=== PATIENT | female | born 1995 | race Caucasian/White ===

== ENCOUNTER 2024-08-10 12:00 | Inpatient (IN) ==
[2024-08-13] MEDS: PEPCID 20 MG VIAL ONE (06:38)
[2024-08-13] MEDS: ZOFRAN INJ 4 MG VIAL ONE (06:38)
[2024-08-13] MEDS: REGLAN INJ 10 MG VIAL ONE (06:38)
[2024-08-13] MEDS ORDERED: D5 1/2 NS 1,000 ML 1,000 ML IV SCH (06:40)
[2024-08-13] MEDS: LR 1,000 ML IV 1,000 ML IV ONE ×2 (06:42→07:24)
[2024-08-13] MEDS: XYLOCAINE 1 % (PLAIN) ONE (06:50)
[2024-08-13] MEDS: LR 1,000 ML IV 2,000 ML IV PRN (06:50)
[2024-08-13] MEDS: PRECEDEX INJ VIAL ONE (06:51)
[2024-08-13] MEDS: MARCAINE SPINAL ONE (06:51)
[2024-08-13] MEDS: PEPCID 20 MG VIAL IVP PRN (07:00)
[2024-08-13] MEDS: ZOFRAN INJ 4 MG VIAL IVP PRN (07:00)
[2024-08-13] MEDS: REGLAN INJ 10 MG VIAL IVP PRN (07:00)
[2024-08-13] MEDS: TORADOL 30 MG VIAL ONE (07:06)
[2024-08-13] MEDS: OFIRMEV IV 1000 MG VIAL 1,000 MG/100 ML VIAL IV ONE (07:06)
[2024-08-13] MEDS: ANCEF VIAL 1 GRAM IV PRN (07:15)
[2024-08-13] MEDS: NS 100 ML IV 100 ML ONE (07:24)
[2024-08-13] MEDS: ANCEF VIAL 1 GRAM IVP ONE (07:24)
[2024-08-13] MEDS: NS 1,000 ML IV 1,000 ML ONE (07:24)
[2024-08-13] MEDS: PITOCIN ONE (07:57)
[2024-08-13] MEDS: TORADOL 30 MG VIAL IVP PRN ×2 (08:06→13:10)
[2024-08-13] MEDS: DIPRIVAN VIAL 200 ML IVP PRN (08:11)
[2024-08-13] MEDS: NS 1,000 ML IV 400 ML IV PRN (08:16)
[2024-08-13] MEDS ORDERED: PITOCIN IVP PRN (08:16)
[2024-08-13] MEDS ORDERED: ZOFRAN INJ 4 MG VIAL IVP PRN (08:28)
[2024-08-13] MEDS ORDERED: BENADRYL INJ 50 MG VIAL IVP PRN ×2 (08:28→09:39)
[2024-08-13] MEDS ORDERED: BARHEMSYS INJ IVP PRN (08:28)
[2024-08-13] MEDS ORDERED: DILAUDID INJ IVP PRN (08:28)
[2024-08-13] MEDS ORDERED: REGLAN INJ 10 MG VIAL IVP PRN ×2 (08:28→09:39)
[2024-08-13] MEDS: OFIRMEV IV 1000 MG VIAL 1,000 MG/100 ML VIAL IV PRN (08:45)
[2024-08-13] MEDS ORDERED: NARCAN INJ IVP PRN (09:39)
[2024-08-13] MEDS: PERCOCET TAB 5/325 MG PO PRN (15:37)
[2024-08-13] MEDS ORDERED: ADACEL or BOOSTRIX TDaP VACCINE IM ONE (15:38)
[2024-08-13] MEDS: ADACEL or BOOSTRIX TDaP VACCINE IM ONE (15:48)
[2024-08-13] MEDS: OXYTOCIN 20 UNIT/1,000 ML-NS 20 UNIT/1,000 ML PLAST..BAG IV SCH (15:52)
[2024-08-13] MEDS: MYLICON TAB 80 MG CHEW PO PRN (19:38)
[2024-08-14] MEDS: ZOFRAN INJ 4 MG VIAL IVP PRN (00:13)
[2024-08-14 05:08] LABS: HEMATOCRIT 33.5 % (36.0-47.0); HEMOGLOBIN 11.3 g/dL (12.0-16.0)
[2024-08-14] MEDS: PROTONIX TAB 40 MG PO SCH (08:19)
[2024-08-14] MEDS: PRENATAL PLUS PO SCH (08:19)
[2024-08-14] MEDS: MOTRIN TAB 800 MG PO PRN (08:20)
[2024-08-14] MEDS ORDERED: PRENATAL PLUS PO SCH (09:00)
[2024-08-14] MEDS: COLACE CAP 100 MG PO SCH (09:57)
[2024-08-14] MEDS: PERCOCET TAB 5/325 MG PO PRN (09:58)
[2024-08-14] MEDS: BACTROBAN TOPICAL OINT TOP SCH (14:36)
[2024-08-15 00:17] VITALS: TEMP 98
[2024-08-15 06:09] VITALS: O2SAT 97
[2024-08-15 08:15] VITALS: BP 133/75; PULSE 86; RESP 17
== END 2024-08-15 10:00 | disposition home or self-care (01) | DRG 788 ==
LOC: LD 08-13 06:26 → MED/SURG 08-13 09:38
PROVIDERS: ADMIT Specialist; ATTEND Specialist
DX: Z37.0 Single live birth; O41.03X0 Oligohydramnios, third trimester, not applicable or unspecified; O99.613 Diseases of the digestive system complicating pregnancy, third trimester; Z3A.38 38 weeks gestation of pregnancy; K21.9 Gastro-esophageal reflux disease without esophagitis; O34.211 Maternal care for low transverse scar from previous cesarean delivery; N85.8 Other specified noninflammatory disorders of uterus

== ENCOUNTER 2025-05-15 16:25 | Inpatient (IN) ==
--- NOTE | 2025-05-15 17:09 | ED.ABDFE ---
HPI Time Seen Time Seen by Provider: 05/15/25 16:37 PCP Primary Care Physician: nfd Complaint Doctors Chief Complaint Comments: 29 yo F, hx ovarian cysts, abd surg hx of c/s x 3, no other med or surg hx, c/o bilat lower abd pain for past 12. States pain has become increasingly worse throughout the day. Denies urinary symptoms. Chief Complaint:: Pt states she had sudden onset of abdominal pain and vomiting x2 hours ago. She states she has thrown up about 10x since these sx started. She indicates pain is at lower abdomen, rates 10/10; denies urinary complaints. She denies GI hx; denies diarrhea. States she felt lightheaded and was "seeing black spots" when she stood from sitting position. Self Treatment fo Chief Complaint: zofran at approx 11am COVID-19 Coronavirus risk:travel/contact w/high risk person: No Has patient experienced Coronavirus symptoms: No Source History Provided: Patient Mode of arrival Mode of Arrival: Ambulatory Timing Onset of Chief Complaint: 05/15/25 PMH PMH Past Medical History: No Past Surgical History: Yes Surgical History: Family History History of Family Medical Conditions: Yes Family Medical History: Diabetes Mellitus, Cancer and Hypertension Social History Does any household member use tobacco: No Alcohol Use: None Do you use any recreational Drugs:: No Lives With: Spouse and Family Lives Where: Home Travel Risk Coronavirus risk:travel/contact w/high risk person: No Has patient experienced Coronavirus symptoms: No Infectious screening In the last 2 months have you had wt loss of >10#?: NO Have you had fever, night sweats or hemotysis?: No Have you traveled outside the country in the last 6 months?: No Isolation: Contact ROS Review of Systems Gastrointestinal/Abdominal: Abdominal Pain, Nausea and Vomiting; negative Diarrhea All Other Systems: Reviewed and Negative PE Vital Signs Vitals: Vital Signs Temperature 97.5 F Pulse Rate [Left] 75 Pulse Rate 87 Respiratory Rate 20 Respiratory Rate 20 Respiratory Rate 20 Blood Pressure [Left Arm] 144/78 Blood Pressure 137/100 O2 Sat by Pulse Oximetry 100 O2 Sat by Pulse Oximetry 100 General Limitations: No Limitations and Language Barrier General Appearance: Alert and In No Apparent Distress Head Head Exam: Normal Inspection Eyes Eye exam: Normal Appearance ENT ENT Exam: Normal Exam Neck Neck Exam: Normal Inspection Chest Chest Inspection: Normal Inspection Respiratory Respiratory Exam: Normal Lung Sounds Bilat Cardiovascular Cardiovascular Exam: Regular Rate and Normal Rhythm Abdominal Exam Abdominal Exam: Soft, Tenderness and Guarding; negative Normal Bowel Sounds Rectal Rectal Exam: Deferred Back Back Exam: Normal Inspection Extremeties Extremities Exam: Normal Inspection Neurologic Neurological Exam: Alert and Oriented X3 Psychiatric Psychiatric Exam: Normal Affect and Normal Mood Skin Skin Exam: Warm, Dry and Intact ROR Labs Reviewed Laboratory Results Reviewed?: Yes 05/15/25 17:15 05/15/25 17:15 Laboratory: WBC 18.3 X10^3/uL (3.6-10.0) H 05/15/25 17:15 RBC 5.44 X10^6/uL (3.5-5.4) H 05/15/25 17:15 Hgb 13.4 g/dL (12.0-16.0) 05/15/25 17:15 Hct 41.8 % (36.0-47.0) 05/15/25 17:15 MCV 76.9 fL (80.0-100.0) L 05/15/25 17:15 MCH 24.6 pg (27.0-34.0) L 05/15/25 17:15 MCHC 32.0 g/dL (33.0-35.0) L 05/15/25 17:15 RDW 15.6 % (11.6-16.5) 05/15/25 17:15 Plt Count 319 X10^3/uL (150.0-450.0) 05/15/25 17:15 MPV 9.3 fL (7.4-11.0) 05/15/25 17:15 Neut % (Auto) 80.8 % (42.0-75.0) H 05/15/25 17:15 Lymph % (Auto) 14.4 % (21.0-51.0) L 05/15/25 17:15 [place] % (Auto) 3.6 % (0.0-13.0) 05/15/25 17:15 Eos % (Auto) 0.4 % (0.9-2.9) L 05/15/25 17:15 Baso % (Auto) 0.8 % (0.2-1.0) 05/15/25 17:15 Neut # (Auto) 14.8 x10^3/uL (2.2-4.8) H 05/15/25 17:15 Lymph # (Auto) 2.6 X10^3/uL (1.3-2.9) 05/15/25 17:15 [place] # (Auto) 0.7 x10^3/uL (0.3-0.8) 05/15/25 17:15 Eos # (Auto) 0.1 x10^3/uL (0.0-0.2) 05/15/25 17:15 Baso # (Auto) 0.1 X10^3/uL (0.0-0.1) 05/15/25 17:15 Absolute Nucleated RBC 0.1 /100WBC 05/15/25 17:15 Sodium 139 mmol/L (136-145) 05/15/25 17:15 Corrected Sodium 140 mmol/L (136-145) 05/15/25 17:15 Potassium 4.0 mmol/L (3.5-5.1) 05/15/25 17:15 Chloride 103 mmol/L (98-107) 05/15/25 17:15 Carbon Dioxide 26.4 mmol/L (21-32) 05/15/25 17:15 BUN 10 mg/dL (7-18) 05/15/25 17:15 Creatinine 0.99 mg/dL (0.55-1.02) 05/15/25 17:15 Est GFR (MDRD) Af Amer > 60 (>60) 05/15/25 17:15 Est GFR (MDRD) Non-Af > 60 (>60) 05/15/25 17:15 Glucose 140 mg/dL (65-99) H 05/15/25 17:15 Calcium 9.1 mg/dL (8.5-10.1) 05/15/25 17:15 Corrected Calcium TNP 05/15/25 17:15 Total Bilirubin 0.30 mg/dL (0.2-1.0) 05/15/25 17:15 AST 44 Units/L (15-37) H 05/15/25 17:15 ALT 70 Units/L (12-78) 05/15/25 17:15 Alkaline Phosphatase 107 Units/L (46-116) 05/15/25 17:15 Total Protein 8.0 g/dL (6.4-8.2) 05/15/25 17:15 Albumin 4.1 g/dL (3.4-5.0) 05/15/25 17:15 Globulin 3.9 g/dL (2.5-4.5) 05/15/25 17:15 Albumin/Globulin Ratio 1.1 Ratio (1.1-2.1) 05/15/25 17:15 Lipase 27 Units/L (16-77) 05/15/25 17:15 HCG, Qual Negative <10 mIU/mL 05/15/25 17:15 Specimen Type Clean catch urine 05/15/25 18:00 Urine Color Yellow (YELLOW) 05/15/25 18:00 Urine Appearance Clear (CLEAR) 05/15/25 18:00 Urine pH 6.0 (5.0 - 8.0) 05/15/25 18:00 Ur Specific [place] 1.030 (1.000-1.030) 05/15/25 18:00 Urine Protein 2+ (NEGATIVE) 05/15/25 18:00 Urine Glucose (UA) Negative (NEGATIVE) 05/15/25 18:00 Urine Ketones 1+ (NEGATIVE) 05/15/25 18:00 Urine Blood Negative (NEGATIVE) 05/15/25 18:00 Urine Nitrite Negative (NEGATIVE) 05/15/25 18:00 Urine Bilirubin Negative (NEGATIVE) 05/15/25 18:00 Urine Urobilinogen Normal (NORMAL) 05/15/25 18:00 Ur Leukocyte Esterase Negative (NEGATIVE) 05/15/25 18:00 Urine RBC None seen /HPF (0-3) 05/15/25 18:00 Urine WBC 0-2 /HPF (0-5) 05/15/25 18:00 Ur Squamous Epith Cells Rare /HPF (NEGATIVE) 05/15/25 18:00 Calcium Oxalate Crystal Rare /HPF (NEGATIVE) 05/15/25 18:00 Amorphous Sediment Trace /HPF (NEGATIVE) 05/15/25 18:00 Urine Bacteria Negative /HPF (NEGATIVE) 05/15/25 18:00 Urine Mucus Few /HPF (NEGATIVE) 05/15/25 18:00 Ur Culture Indicated? No/not indicated 05/15/25 18:00 Opioid Opioid Risk Tool Age (Al box if 16-45): Yes History of Preadolescent Sexual Abuse: No Total: 1 Total Score Risk Category: Low Risk Copyright: Adiel PAGAN predicting aberrant behaviors Discharge Plan Diagnosis Discharge Problem: Acute appendicitis, Ovarian cyst Discharge Plan Patient Disposition: 09 ADMITTED INPATIENT Condition: Stable Prescriptions: No Action ondansetron HCl 4 mg tablet 4 mg PO Q4H PRN Health Concerns: Post Hospitalization: new medications and changes needed to prevent readmission or further decline. Pt educated and given instructions on all concerns. Plan of Treatment: Continue with present treatment and follow up plan. Pt is to keep follow up appointment as instructed and take medications as ordered. Orders to Discharge Patient Discharge Orders: Transfer (Routine); Ordered 05/15/25 Ordered By: Froilan Domingo Follow ups/Referrals Follow ups/Referrals: [facility],None [Primary Care Provider] - 3 days Instructions Stand Alone Forms: Find Help Web Site, Post Hospital Follow Up Care Print Language: SWEDISH Provider Note Additional Notes Spoke with Dr Junior, who accepts pt for admission at this time, planning for surgery tomorrow morning. Pt given zosyn and made NPO.
[2025-05-15] MEDS: NS 1,000 ML IV 1,000 ML IV ONE (17:19)
[2025-05-15] MEDS: ZOFRAN INJ 4 MG VIAL IVP ONE (17:19)
[2025-05-15] MEDS: MORPHINE SULFATE INJ 4 MG IVP ONE (17:19)
[2025-05-15 17:24] LABS: MEAN PLATELET VOLUME 9.3 fL (7.4-11.0); RED CELL DISTRIBUTION WIDTH 15.6 % (11.6-16.5)
[2025-05-15 17:35] LABS: SERUM PREGNANCY TEST, QUAL NEGATIVE <10 mIU/mL
[2025-05-15 17:36] LABS: COR NA(FOR HYPERGLY) 140 mmol/L (136-145); CREATININE 0.99 mg/dL (0.55-1.02); eGFR NON BLACK RACES > 60 (>60)
[2025-05-15] MEDS: OMNIPAQUE 350 mg/mL 100 mL BTL IVP NR (17:45)
[2025-05-15 18:17] LABS: BLOOD/HEMOGLOBIN,URINE NEGATIVE (NEGATIVE); LEUKOCYTE ESTERASE ,URINE NEGATIVE (NEGATIVE); NITRITES,URINE NEGATIVE (NEGATIVE)
[2025-05-15 18:21] LABS: APPEARANCE,URINE CLEAR (CLEAR)
[2025-05-15 18:33] LABS: CALCIUM OXALATE CRYSTALS,UR RARE /HPF (NEGATIVE); SQUAMOUS EPITHELIAL CELL,UR RARE /HPF (NEGATIVE)
[2025-05-15] MEDS ORDERED: NS 250 ML IV 25 ML IV PRN (18:48)
[2025-05-15] MEDS: ZOSYN VIAL 3.375 GRAMS 3.375 G in NS 100 ML IV 100 ML IV ONE (18:57)
--- NOTE | 2025-05-15 18:59 | CT ---
EXAM: CT ABDOMEN AND PELVIS WITH INTRAVENOUS CONTRAST HISTORY: Right lower quadrant abdominal pain. TECHNIQUE: Spiral axial CT images are obtained through the abdomen and pelvis without the administration of oral contrast and with the administration of intravenous contrast. Additional coronal and sagittal reformatted images are reconstructed. COMPARISON: None available. FINDINGS: GASTROINTESTINAL TRACT: There is evidence for early acute appendicitis in the appropriate clinical setting, marked by a dilated (1.2 cm diameter), thickwalled, fluid-filled appendix with minimal periappendiceal streaky inflammatory change. Axial image 69-85. Careful clinical correlation is advised. No drainable fluid collection, free air, or abscess formation seen. There is no evidence for bowel herniation, bowel obstruction, colitis or diverticulitis. GENITOURINARY SYSTEM: The kidneys are unremarkable. There is no ureteral calculus or stigmata of obstructive uropathy. The urinary bladder is grossly unremarkable for a non-dedicated exam. REPRODUCTIVE SYSTEM: There is an approximately 3.4 cm x 3.4 cm x 3.5 cm right ovarian cyst, presumed to represent a pathological cyst in this age category based on size criteria. Axial image 82; coronal image 38. Consider correlation with a followup ultrasound for further characterization as clinically warranted. The uterus and adnexa appear grossly unremarkable for a CT scan. Consider follow-up dedicated imaging as clinically warranted. LIVER: Diffuse hepatic steatosis with hepatomegaly (right lobe measures 26.1 cm CC); rule out nonalcoholic steatosis hepatitis; no focal hepatic mass seen. CT ABDOMEN: The spleen, pancreas, adrenal glands, gallbladder, aorta, and inferior vena cava are within normal limits for a CT scan. There is no intra-abdominal or retroperitoneal lymphadenopathy, free fluid, or free air seen. No abdominal herniation is noted. CT PELVIS: No pelvic sidewall or inguinal lymphadenopathy is seen. No inguinal herniation is noted. No free fluid or free air is seen. BONES AND JOINTS: The visualized bony structures are within normal limits. LUNG BASES: The lung bases are clear. IMPRESSION: 1. Evidence for early acute appendicitis in the appropriate clinical setting, marked by a dilated (1.2 cm diameter), thickwalled, fluid-filled appendix with minimal periappendiceal streaky inflammatory change. Axial image 69-85; coronal image 29-33. Careful clinical correlation is advised. 2. No drainable fluid collection, free air, or abscess formation seen. 3. No evidence for bowel herniation/obstruction, colitis or diverticulitis seen. 4. No evidence for pyelonephritis, renal stone disease or obstructive uropathy. 5. Approximately 3.4 cm x 3.4 cm x 3.5 cm right ovarian cyst, presumed to represent a pathological cyst in this age category based on size criteria. Axial image 82; coronal image 38. Consider correlation with a followup ultrasound for further characterization as clinically warranted. 6. Diffuse hepatic steatosis with hepatomegaly (right lobe measures 26.1 cm CC); rule out nonalcoholic steatosis hepatitis; no focal hepatic mass seen. 7. No free fluid, free air, mass lesions, or lymphadenopathy seen. THIS IS AN ELECTRONICALLY VERIFIED FINAL REPORT 05/15/2025 6:38 PM - Electronically signed by Neli Anne MD
[2025-05-15] MEDS ORDERED: PRECEDEX INJ VIAL ONE (19:33)
[2025-05-15] MEDS ORDERED: SUPRANE IN ONE (19:33)
[2025-05-15] MEDS ORDERED: XYLOCAINE 2 % (PLAIN) ONE (19:33)
[2025-05-15] MEDS ORDERED: KETAMINE HCL ONE (19:33)
--- NOTE | 2025-05-15 19:44 | EKG ---
Test Reason : pre-op Blood Pressure : */* mmHG Vent. Rate : 62 BPM Atrial Rate : 62 BPM P-R Int : 168 ms QRS Dur : 82 ms QT Int : 426 ms P-R-T Axes : 66 71 71 degrees QTc Int : 432 ms Normal sinus rhythm with sinus arrhythmia Normal ECG No previous ECGs available Confirmed by Ranjit Navas MD ([id number]) on 05/16/2025 5:37:09 AM Referred By: Confirmed By: Ranjit Navas MD
[2025-05-15] MEDS ORDERED: TYLENOL 325 MG TAB PO PRN (20:30)
[2025-05-15] MEDS ORDERED: ZOFRAN TAB 4 MG PO PRN (20:30)
[2025-05-15] MEDS ORDERED: NORCO 5/325 MG TAB PO PRN (20:30)
[2025-05-15] MEDS: NS 1,000 ML IV 1,000 ML IV SCH (20:51)
[2025-05-15] MEDS: ULTRAM PO PRN (21:20)
[2025-05-15] MEDS: OMNIPAQUE 350 mg/mL 100 mL BTL 100 ML ONE (21:58)
[2025-05-15 22:39] VITALS: BMI 44.1
[2025-05-16] MEDS: MORPHINE SULFATE INJ 2 MG INJ IVP PRN ×2 (00:51→12:57)
[2025-05-16] MEDS: CONSULT PHARMACY - POTASSIUM & MAGNESIUM XX SCH (02:08)
[2025-05-16 04:58] LABS: MEAN PLATELET VOLUME 9.4 fL (7.4-11.0); RED CELL DISTRIBUTION WIDTH 16.1 % (11.6-16.5)
[2025-05-16 05:10] LABS: COR CA(FOR HYPOALB) 8.9 mg/dL (8.5-10.1); CREATININE 0.83 mg/dL (0.55-1.02); eGFR NON BLACK RACES > 60 (>60)
[2025-05-16] MEDS: HIBICLENS WASH EXT ONE (06:05)
[2025-05-16] MEDS: ZOFRAN INJ 4 MG VIAL IVP PRN (06:54)
[2025-05-16] MEDS ORDERED: CONSULT PHARMACY - POTASSIUM & MAGNESIUM XX SCH (07:00)
[2025-05-16] MEDS: LR 1,000 ML IV 1,000 ML IV ONE ×2 (08:19→10:49)
[2025-05-16] MEDS: ANCEF VIAL 1 GRAM ONE (08:20)
[2025-05-16] MEDS: NS 100 ML IV 100 ML ONE (08:20)
[2025-05-16] MEDS: VERSED ONE (08:38)
[2025-05-16] MEDS: DIPRIVAN VIAL 20 ML ONE (08:39)
[2025-05-16] MEDS: FENTANYL VIAL INJ 100 mcg ONE (08:39)
[2025-05-16] MEDS: ZEMURON 100 MG VIAL ONE (08:39)
[2025-05-16] MEDS: BRIDION ONE (08:39)
[2025-05-16] MEDS: ZOFRAN INJ 4 MG VIAL ONE (08:39)
[2025-05-16] MEDS: ANCEF VIAL 1 GRAM IV PRN (08:40)
[2025-05-16] MEDS: LR 1,000 ML IV 0 ML IV PRN (08:40)
[2025-05-16] MEDS: VERSED IVP PRN (08:43)
[2025-05-16] MEDS: PEPCID 20 MG VIAL ONE (08:43)
[2025-05-16] MEDS: FENTANYL VIAL INJ 100 mcg IVP PRN ×2 (08:48→08:49)
[2025-05-16] MEDS: DIPRIVAN VIAL 150 ML IVP PRN (08:50)
[2025-05-16] MEDS: ZEMURON 100 MG VIAL IVP PRN ×2 (08:50→09:03)
[2025-05-16] MEDS: XYLOCAINE 2 % (PLAIN) IVP PRN (08:50)
[2025-05-16] MEDS: KETAMINE HCL IV PRN ×2 (08:54→09:13)
[2025-05-16] MEDS: OFIRMEV IV 1000 MG VIAL 1,000 MG/100 ML VIAL IV ONE (08:56)
[2025-05-16] MEDS: BACTROBAN TOPICAL OINT ONE (08:56)
[2025-05-16] MEDS: MARCAINE 0.5% ONE (08:56)
[2025-05-16] MEDS: PRECEDEX INJ VIAL IVP PRN ×2 (08:58→09:14)
[2025-05-16] MEDS: OFIRMEV IV 1000 MG VIAL 1,000 MG/100 ML VIAL IV PRN (09:00)
[2025-05-16] MEDS: TORADOL 30 MG VIAL ONE (09:11)
[2025-05-16] MEDS: TORADOL 30 MG VIAL IVP PRN (09:17)
[2025-05-16] MEDS ORDERED: BENADRYL INJ 50 MG VIAL IVP PRN (09:19)
[2025-05-16] MEDS ORDERED: ZOFRAN INJ 4 MG VIAL IVP PRN (09:19)
[2025-05-16] MEDS ORDERED: REGLAN INJ 10 MG VIAL IVP PRN (09:19)
[2025-05-16] MEDS ORDERED: BARHEMSYS INJ IVP PRN (09:19)
[2025-05-16] MEDS: BRIDION IVP PRN (09:22)
[2025-05-16] MEDS: DILAUDID INJ ONE (09:34)
[2025-05-16] MEDS: DILAUDID INJ IVP PRN (09:36)
[2025-05-16] MEDS ORDERED: NS 250 ML IV 25 ML IV PRN (09:40)
[2025-05-16] MEDS: D5 1/2 NS 1,000 ML 1,000 ML IV SCH (12:31)
[2025-05-16] MEDS: ZOSYN VIAL 3.375 GRAMS 3.375 G in NS 100 ML IV 100 ML IV SCH (12:32)
[2025-05-16] MEDS: K-DUR TAB 20 MEQ PO SCH (18:34)
[2025-05-17 05:03] LABS: MEAN PLATELET VOLUME 9.7 fL (7.4-11.0); RED CELL DISTRIBUTION WIDTH 15.6 % (11.6-16.5)
[2025-05-17 05:10] LABS: COR CA(FOR HYPOALB) 8.7 mg/dL (8.5-10.1); COR NA(FOR HYPERGLY) 141 mmol/L (136-145); CREATININE 0.84 mg/dL (0.55-1.02); eGFR NON BLACK RACES > 60 (>60)
[2025-05-17] MEDS: K-DUR TAB 20 MEQ PO SCH (05:55)
[2025-05-17] MEDS ORDERED: CONSULT PHARMACY - POTASSIUM & MAGNESIUM XX SCH ×2 (06:00→07:00)
[2025-05-17 07:49] VITALS: BP 127/80; PULSE 60; RESP 16; TEMP 97.7; O2SAT 98
== END 2025-05-17 08:45 | disposition home or self-care (01) | DRG 399 ==
LOC: ER 16:25 → MED/SURG 19:33
PROVIDERS: ADMIT Surgery; ATTEND Surgery
PROC: APPYLAP (ICD-10-PCS; 2025-05-16 08:15)
DX: R73.09 Other abnormal glucose; K35.890 Other acute appendicitis without perforation or gangrene; D72.828 Other elevated white blood cell count; Z01.810 Encounter for preprocedural cardiovascular examination; K76.0 Fatty (change of) liver, not elsewhere classified; R11.2 Nausea with vomiting, unspecified; K66.0 Peritoneal adhesions (postprocedural) (postinfection); R10.31 Right lower quadrant pain; R42 Dizziness and giddiness